=== PATIENT | male | born 2000 ===

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

== ENCOUNTER → 2020-08-11 09:55 | Outpatient (CLI) | payer OTHER | END | disposition home or self-care (01) | LOC: LAB 09:55 | PROVIDERS: ATTEND Pediatrics Pediatric Endocrinology | DX: U07.1 COVID-19 (principal); E78.2 Mixed hyperlipidemia; E03.8 Other specified hypothyroidism; Z11.4 Encounter for screening for human immunodeficiency virus [HIV]; B20 Human immunodeficiency virus [HIV] disease; E16.1 Other hypoglycemia ==

== ENCOUNTER 2021-01-16 10:38 | Outpatient (CLI) | payer OTHER | END 2021-01-16 10:39 | disposition home or self-care (01) | LOC: PPH VACUNA 10:38 | DX: Z23 Encounter for immunization (principal) ==

== ENCOUNTER 2021-02-06 08:00 | Outpatient (CLI) | payer OTHER | END 2021-02-06 08:30 | disposition home or self-care (01) | LOC: PPH VACUNA 08:00 | DX: Z23 Encounter for immunization (principal) ==